=== PATIENT | female | born 1980 | race Caucasian/White ===

== ENCOUNTER 2024-08-05 11:35 | Emergency (ER) | payer OTHER, SELFPAY ==
[2024-08-05 11:43] VITALS: BP 153/96; PULSE 70; RESP 20; TEMP 36.4; O2SAT 100; BMI 35.4
--- NOTE | 2024-08-05 12:00 | CRLHL7_ITS ---
For Patients: As a result of the Cures Act, medical imaging exams and procedure reports are released immediately into your electronic medical record. You may view this report before your referring provider. If you have questions, please contact your health care provider. INDICATION: : Chest pain COMPARISON: None TECHNIQUE: Two view(s) of the chest FINDINGS: The cardiomediastinal silhouette and pulmonary vasculature are unremarkable. There is no focal airspace consolidation, pleural effusion, or pneumothorax. No displaced fractures. IMPRESSION: No acute cardiopulmonary process. Dictated by Hudson Lincoln MD @ 08/05/2024 12:48:48 PM (Electronically Signed)
--- NOTE | 2024-08-05 12:14 | ED.CHESTPAIN ---
HPI - Chest Pain General Date Seen: 08/05/24 Chief Complaint: Chest Pain Stated Complaint: Chest pain, shortness of breath, sweating Time Seen by Provider: 08/05/24 11:54 Source: patient Mode of arrival: ambulatory Limitations: no limitations History of Present Illness HPI narrative: Patient is a 43-year-old female presenting to emergency department for chest pain. She states last night while she was working she suddenly had some chest pain, shortness of breath and felt diaphoretic. Strep the chest pain as a tight sensation in her upper chest. She feels like she might get some mild improvement with ibuprofen and antacids but the symptoms did continue. She states they now symptoms seem to be much better and only has pain she described as a 1/10 dull sensation in her lower sternal region. Denies symptoms like this before. She works at a physician's office and when she went into work today she was told to come to the emergency department for evaluation. She is a smoker but is trying to quit. Last time she smoked regularly was in April. Denies fevers, chills, weakness, headaches, abdominal pain, diarrhea, constipation, lightheadedness, dizziness. Denies symptoms like this before. Has no family history of coronary artery disease before the age of 65. She has no other medical problems other than rheumatoid arthritis. No history of blood clots. No history of cancer. No other concerns noted. Does state this morning she took more ibuprofen and does think that helped. Related Data Home Medications ?Medication ?Instructions ?Recorded ?Confirmed adalimumab 20 mg/0.4 mL See Rx Instructions subcut .COMPLEX 08/05/24 08/05/24 subcutaneous syringe kit Allergies Allergy/AdvReac Type Severity Reaction Status Date / Time bupropion [From Wellbutrin] Allergy Unknown Verified 08/05/24 11:47 Review of Systems Status of ROS Reports: 10 or more systems reviewed and unremarkable except as noted in History and below PFSH PFSH Social History Smoking Status: Former smoker What tobacco products do you use: cigarettes Do you use any of these nicotine containing products: Vaping Products How often do you have a drink containing alcohol: 2-3 times a week AUDIT-C Alcohol total score: 3 Non-prescribed substance use: marijuana (any form) Exam Narrative Exam Narrative: Const: Well-nourished, Well-developed, in mild distress Eyes: PERRL, no conjunctival injection, and symmetrical lids HENT: Atraumatic external nose and ears. Moist mucous membranes. Neck: Symmetric, trachea midline, No thyromegaly. CVS: RRR, No murmurs or gallops. Peripheral pulses 2+ and equal in all extremities RESP: Unlabored respiratory effort. Clear to auscultation bilaterally. GI: Nontender/Nondistended, No rebound or guarding. MSK:Extremities w/o deformity, Normal Active ROM, palpation of lower sternal region does not reproduce her pain Skin: Warm, Dry. No rashes or lesions. Neuro: Normal Muscle tone, No focal neurological deficits. Psych: Awake, Alert, & Oriented x3. Appropriate mood and affect. Const Vital Signs, click to edit/add: Vital Signs - 24 hr 08/05/24 11:43 08/05/24 13:40 08/05/24 17:58 Temperature 97.5 F L 97.7 F Pulse Rate [Pulse Oximeter] 70 70 63 Respiratory Rate 20 18 16 Blood Pressure [Right Upper Arm] 153/96 H 143/99 H 150/102 H Pulse Oximetry 100 99 100 Oxygen Delivery Method Room Air Room Air Room Air Course Vital Signs Vital signs: Initial Vital Signs Temperature 97.5 F L 08/05/24 11:43 Temperature Source Temporal Artery Scan 08/05/24 11:43 Pulse Rate 70 08/05/24 11:43 Respiratory Rate 20 08/05/24 11:43 Blood Pressure 153/96 H 08/05/24 11:43 Blood Pressure Mean 115 H 08/05/24 11:43 Blood Pressure Position Sitting 08/05/24 11:43 Pulse Oximetry 100 08/05/24 11:43 Oxygen Delivery Method Room Air 08/05/24 11:43 Vital Signs Temperature 97.5 F L 08/05/24 11:43 Pulse Rate 70 08/05/24 11:43 Respiratory Rate 20 08/05/24 11:43 Blood Pressure 153/96 H 08/05/24 11:43 Pulse Oximetry 100 08/05/24 11:43 Oxygen Delivery Method Room Air 08/05/24 11:43 Temperature 97.7 F 08/05/24 17:58 Pulse Rate 63 08/05/24 17:58 Respiratory Rate 16 08/05/24 17:58 Blood Pressure 150/102 H 08/05/24 17:58 Pulse Oximetry 100 08/05/24 17:58 Oxygen Delivery Method Room Air 08/05/24 17:58 MDM - Chest Pain MDM Narrative Medical decision making narrative: Patient is a 43-year-old female presenting for chest pain. The differential diagnosis of chest pain is broad and includes common etiologies such as musculoskeletal strain, GERD, pneumonia, etc. More serious etiologies considered include PE, coronary artery disease, pneumothorax, aortic dissection, aortic aneurysm. At this time she is PERC negative and PE can not be ruled out. Will do an EKG and troponin look for signs of coronary artery disease. I believe your dissection and aortic aneurysm unlikely comes in her lower stable vital signs and improving symptoms. Pneumothorax seems unlikely but will be seen on chest x-ray along with possible pneumonia. Also order CBC, CMP, magnesium. While her pain is lower sternum not so much epigastric I will order lipase for possible pancreatitis. Troponin and EKG shows no concerning abnormalities. Seems unlikely to be cardiac in nature. Considering most of her symptoms yesterday of expect a higher troponin this was cardiac in nature stenosis or not believe repeat troponin is necessary Chest x-ray shows no concerning abnormalities. CBC returned showing no concerning abnormalities. CMP returned with elevated liver enzymes with an AST of 895 his ALT of 428. Alk-phos is also mildly elevated. Total bilirubin is at 1.8 she and direct bilirubin is 1.4. I spoke to her and she has no history of elevated LFTs. I was able to see her she lab work from couple months ago through [place] and her AST and ALT at that time were 23. She has no history of alcoholic hepatitis that she is aware of. No recent travel. States she has never had hepatitis. Hepatitis panel will be ordered. Her symptoms could of been a gallstone the has since passed causing referred pain to her chest. Will do a right upper quadrant ultrasound is this is evaluate the gallbladder and liver. This was done showing some fatty liver disease and a pancreatic cyst and a pancreas MRI was recommended. This was ordered. MRI was done showing a pancreatic cyst that needs to be followed up with and 2 years. Patient will be discharged now ready spoke to her primary care provider who will follow up on her liver enzymes. Patient is aware will be discharged. Lab Data Labs: Lab Results 08/05/24 08/05/24 08/05/24 Range/Units 12:21 12:24 12:26 WBC 8.56 (4.50-11.00) K/uL RBC 4.26 (4.00-5.20) m/uL Hgb 12.6 (12.0-16.0) gm/dL Hct 39.5 (33.0-51.0) % MCV 93 (80-100) fL MCH 30 (26-34) pg MCHC 32 (32-36) gm/dL RDW Coeff of Sriram 14.6 (11.5-15.5) % Plt Count 280 (140-440) K/uL Neut % (Auto) 64.3 (42.0-72.0) % Lymph % (Auto) 25.8 (20-44) % Dupage % (Auto) 7.4 (0.0-11.0) % Eos % (Auto) 1.9 (0.0-7.0) % Baso % (Auto) 0.4 (0.0-3.0) % Neut # (Auto) 5.51 (1.7-7.0) K/uL Lymph # (Auto) 2.21 (0.90-2.90) K/uL Dupage # (Auto) 0.60 (0.00-0.90) K/UL Eos # (Auto) 0.16 (0.00-0.50) K/uL Baso # (Auto) 0.03 (0.00-0.30) K/uL Abs Immat Gran (auto) 0.02 (0.00-0.30) K/uL Imm/Tot Granulo (auto) 0.2 % Sodium 137 (135-149) mmol/L Potassium 3.9 (3.6-5.1) mmol/L Chloride 109 (96-114) mmol/L Carbon Dioxide 22 (20-32) mmol/L Anion Gap 6 L (7-15) mEq/L BUN 10 (5-24) mg/dL Creatinine 0.6 (0.5-1.5) mg/dL Estimated Creat Clear 97.95 Estimated GFR 113 ml/min Glucose 95 (60-115) mg/dL Calcium 8.5 (8.4-10.6) mg/dL Magnesium 2.2 (1.5-2.6) mg/dL Total Bilirubin 1.8 H (0.1-1.5) mg/dL Direct Bilirubin 1.4 H (0.0-0.5) mg/dL AST 895 H (12-35) U/L ALT 428 H (4-35) U/L Alkaline Phosphatase 171 H (40-150) U/L Total Protein 7.5 (6.0-8.3) g/dL Albumin 4.0 (3.3-5.0) g/dL Lipase 171 (23-300) U/L SARS-CoV-2 (PCR) Negative SARS-CoV-2 (Negative) Influenza Type A (PCR) Negative PCR FLU A (Negative) Influenza Type B (PCR) Negative PCR FLU B (Negative) Lab Acknowledgement POC Troponin I 0.00 L (0.01-0.04) ng/ml 08/05/24 Range/Units 13:05 WBC (4.50-11.00) K/uL RBC (4.00-5.20) m/uL Hgb (12.0-16.0) gm/dL Hct (33.0-51.0) % MCV (80-100) fL MCH (26-34) pg MCHC (32-36) gm/dL RDW Coeff of Sriram (11.5-15.5) % Plt Count (140-440) K/uL Neut % (Auto) (42.0-72.0) % Lymph % (Auto) (20-44) % Dupage % (Auto) (0.0-11.0) % Eos % (Auto) (0.0-7.0) % Baso % (Auto) (0.0-3.0) % Neut # (Auto) (1.7-7.0) K/uL Lymph # (Auto) (0.90-2.90) K/uL Dupage # (Auto) (0.00-0.90) K/UL Eos # (Auto) (0.00-0.50) K/uL Baso # (Auto) (0.00-0.30) K/uL Abs Immat Gran (auto) (0.00-0.30) K/uL Imm/Tot Granulo (auto) % Sodium (135-149) mmol/L Potassium (3.6-5.1) mmol/L Chloride (96-114) mmol/L Carbon Dioxide (20-32) mmol/L Anion Gap (7-15) mEq/L BUN (5-24) mg/dL Creatinine (0.5-1.5) mg/dL Estimated Creat Clear Estimated GFR ml/min Glucose (60-115) mg/dL Calcium (8.4-10.6) mg/dL Magnesium (1.5-2.6) mg/dL Total Bilirubin (0.1-1.5) mg/dL Direct Bilirubin (0.0-0.5) mg/dL AST (12-35) U/L ALT (4-35) U/L Alkaline Phosphatase (40-150) U/L Total Protein (6.0-8.3) g/dL Albumin (3.3-5.0) g/dL Lipase (23-300) U/L SARS-CoV-2 (PCR) (Negative) Influenza Type A (PCR) (Negative) Influenza Type B (PCR) (Negative) Lab Acknowledgement Test Added POC Troponin I (0.01-0.04) ng/ml Imaging Data Chest x-ray: Attestation: I have reviewed the pertinent imaging results. Radiologist's impression: No acute cardiopulmonary process. Dictated by Hudson Lincoln MD @ 08/05/2024 12:48:48 PM US - abdomen: Attestation: I have reviewed the pertinent imaging results. Radiologist's impression: Incompletely distended gallbladder due to nonfasting state. No biliary obstruction. 6 millimeter pancreatic head cyst. MRI pancreas recommended. Mild hepatic steatosis. Dictated by Raleigh Woodward MD @ 08/05/2024 1:59:53 PM MRI - abdomen: Attestation: I have reviewed the pertinent imaging results. Radiologist's impression: 1. Small bilobed cystic structure at the pancreatic body measuring up to 0.6 cm, with connection to the main pancreatic duct, favored to reflect a small side branch IPMN. Recommend follow-up MRI in 2 years. 2. Mild diffuse hepatic steatosis. Dictated by John Guidry MD @ 08/05/2024 6:09:48 PM ECG Data Attestation: I personally reviewed and interpreted this ECG as follows: Prior ECG tracings: not available for review Interpretation: Normal sinus rhythm rate 63 beats per minute, normal intervals, normal axis, no ST or T-wave abnormalities. Discharge Plan Discharge Clinical Impression: Elevated LFTs, Atypical chest pain Patient Disposition: Home, Self-Care Condition: Stable Instructions: Noncardiac Chest Pain (ED) Additional Instructions: I already spoke to your primary care provider and she will call you about signed up a follow-up appointment this week to recheck her liver enzymes. You have the cyst in your kidney called a IPMN and he should follow up with this in 2 years for repeat imaging. Return to emergency department for new or worsening symptoms. Prescriptions: No Action adalimumab 20 mg/0.4 mL syringe kit See Rx Instructions .ROUTE .COMPLEX Rx Instructions: inject one - 40 mg/0.8 mL syringe every 2 weeks Follow Up/Referrals: Maribel Page PA-C [Primary Care Provider] - Stand Alone Forms: Central Desktop Info Instructions
[2024-08-05 12:34] LABS: Basophils Absolute Auto 0.03 K/uL (0.00-0.30); Basophils Percent Auto 0.4 % (0.0-3.0); Eosinophils Absolute Auto 0.16 K/uL (0.00-0.50); Eosinophils Percent Auto 1.9 % (0.0-7.0); Hematocrit 39.5 % (33.0-51.0); Hemoglobin* 12.6 gm/dL (12.0-16.0); Immature Granulocytes Abs Auto 0.02 K/uL (0.00-0.30); Immature Granulocytes Pct Auto 0.2 %; Lymphocytes Absolute Auto 2.21 K/uL (0.90-2.90); Lymphocytes Percent Auto 25.8 % (20-44); Mean Corpuscular HGB Conc 32 gm/dL (32-36); Mean Corpuscular Hemoglobin 30 pg (26-34); Mean Corpuscular Volume 93 fL (80-100); Monocytes Percent Auto 7.4 % (0.0-11.0); Neutrophils Absolute Auto 5.51 K/uL (1.7-7.0); Neutrophils Percent Auto 64.3 % (42.0-72.0); Platelet Count* 280 K/uL (140-440); RDW Coefficient of Variation % 14.6 % (11.5-15.5); Red Blood Count 4.26 m/uL (4.00-5.20); White Blood Count* 8.56 K/uL (4.50-11.00)
[2024-08-05 12:37] LABS: Slide Review Reflex No
[2024-08-05 12:46] LABS: Chloride* 109 mmol/L (96-114)
[2024-08-05 12:47] LABS: Potassium* 3.9 mmol/L (3.6-5.1); Sodium* 137 mmol/L (135-149)
[2024-08-05 12:49] LABS: Alkaline Phosphatase* 171 U/L (40-150); Anion Gap 6 mEq/L (7-15); Bilirubin Total* 1.8 mg/dL (0.1-1.5); Blood Urea Nitrogen* 10 mg/dL (5-24); Calcium* 8.5 mg/dL (8.4-10.6); Carbon Dioxide* 22 mmol/L (20-32); Creatinine* 0.6 mg/dL (0.5-1.5); Est. Creatinine Clearance* 97.95; Estimated Glomerular Filt Rate 113 ml/min; Glucose* 95 mg/dL (60-115); Lipase* 171 U/L (23-300); Total Protein* 7.5 g/dL (6.0-8.3)
[2024-08-05 12:50] LABS: Alanine Aminotransferase* 428 U/L (4-35); Magnesium* 2.2 mg/dL (1.5-2.6)
[2024-08-05 12:58] LABS: Aspartate Amino Transferase* 895 U/L (12-35)
--- NOTE | 2024-08-05 13:04 | CRLHL7_ITS ---
For Patients: As a result of the Century Cures Act, medical imaging exams and procedure reports are released immediately into your electronic medical record. You may view this report before your referring provider. If you have questions, please contact your health care provider. INDICATION: Elevated LFTs COMPARISON: none TECHNIQUE: Real time blakely scale imaging and color Doppler analysis was performed of the right upper quadrant. FINDINGS: The patient`s liver is of normal size and has slightly increased echogenicity. There is a normal appearance of the hepatic IVC and proximal abdominal aorta. There is no evidence of ascites. The gallbladder is incompletely distended and there is no evidence of intraluminal stones or sludge. The gallbladder wall measures 2.7 mm in thickness. The common bile duct is of normal size and measures 4.1 mm in diameter at the level of the jenniffer hepatis. Cyst within the pancreatic head noted measuring 4.6 x 3.7 x 6.0 millimeters. There is no evidence of a stone or hydronephrosis within the right kidney. The right kidney measures 11.8 cm in length. IMPRESSION: Incompletely distended gallbladder due to nonfasting state. No biliary obstruction. 6 millimeter pancreatic head cyst. MRI pancreas recommended. Mild hepatic steatosis. Dictated by Raleigh Woodward MD @ 08/05/2024 1:59:53 PM (Electronically Signed)
[2024-08-05 13:06] LABS: PCR FLU A Negative PCR FLU A (Negative); PCR FLU B Negative PCR FLU B (Negative); SARS PCR* Negative SARS-CoV-2 (Negative)
[2024-08-05 13:22] LABS: Bilirubin Direct* 1.4 mg/dL (0.0-0.5)
[2024-08-05 13:40] VITALS: BP 143/99; PULSE 70; RESP 18; O2SAT 99
--- NOTE | 2024-08-05 14:10 | CRLHL7_ITS ---
For Patients: As a result of the Century Cures Act, medical imaging exams and procedure reports are released immediately into your electronic medical record. You may view this report before your referring provider. If you have questions, please contact your health care provider. Indication: Pancreatic cyst. Abdominal pain. Technique: Multisequence multiplanar MRI of the abdomen both with and without IV contrast (30 mL Dotarem). Comparison: Gallbladder ultrasound earlier same day, dated 08/05/2024. Findings: Liver: Mild diffuse hepatic steatosis. No suspicious focal hepatic lesion. Bile ducts: No intrahepatic or extrahepatic biliary duct dilation. Gallbladder: Gallbladder is decompressed, suboptimally evaluated. No pericholecystic inflammation. Pancreas: Small bilobed cystic structure at the pancreatic body measuring up to 0.6 cm (series 11, image 15). There appears to be a connection to the main pancreatic duct, which is not dilated. This may reflect a small side branch IPMN. Spleen: Unremarkable. Adrenals: Unremarkable. Kidneys: Kidneys enhance symmetrically, without hydronephrosis. Retroperitoneum: No lymphadenopathy. Visualized Bowel and mesentery: Visualized bowel is nondilated. No significant ascites. Vessels: Unremarkable. Abdominal wall: No acute abdominal wall abnormality. Bones: No suspicious/aggressive enhancing focal osseous lesion. Impression: 1. Small bilobed cystic structure at the pancreatic body measuring up to 0.6 cm, with connection to the main pancreatic duct, favored to reflect a small side branch IPMN. Recommend follow-up MRI in 2 years. 2. Mild diffuse hepatic steatosis. Dictated by John Guidry MD @ 08/05/2024 6:09:48 PM (Electronically Signed)
[2024-08-05 17:58] VITALS: BP 150/102; PULSE 63; RESP 16; TEMP 36.5; O2SAT 100
[2024-08-06 14:43] LABS: Hep A Ab, IgM Negative (Negative); Hep B Core Ab, IgM Negative (Negative); Hep B Surface Antigen Negative (Negative); Hep C Ab by CIA Index 0.04 IV; Hep C Ab by CIA Interp Negative (Negative); Hepatitis A Antibodies, Total Positive (Negative)
== END 2024-08-05 18:28 | disposition home or self-care (01) ==
PROVIDERS: Emergency Provider Student in an Organized Health Care Education/Training Program; PCP Physician Assistant
DX: R07.89 Other chest pain (principal); R79.89 Other specified abnormal findings of blood chemistry
CPT/HCPCS: 36415; 71046; 74183; 76705; 80053; 80074; 82248; 83690; 83735; 84484; 85025; 86708; 87631; 93005; 99283; 99284; 99285; A9575